=== PATIENT | female | born 1955 | race Hispanic/Latino ===

== ENCOUNTER 2018-03-08 05:57 | Day surgery (SDC) | payer MEDICARE ==
[2018-03-06 14:05] VITALS: BP 140/71
[2018-03-06 14:07] LABS: BASOPHILS % (AUTO) 0.5 % (0.0-5.0); EOSINOPHILS % (AUTO) 1.9 % (0.0-8.0); HEMATOCRIT 42.1 % (36-48); LYMPHOCYTES % (AUTO) 31.3 % (21.0-51.0); MEAN CORPUSCULAR HGB CONC 32.8 g/dL (32.0-36.0); MEAN CORPUSCULAR VOLUME 88.3 fL (79-99); MONOCYTES % (AUTO) 6.9 % (3.0-13.0); NEUTROPHILS % (AUTO) 59.4 % (40.0-77.0); NUCLEATED RED BLOOD CELLS 0.1 % (0.0-0.19); PLATELET COUNT (AUTO) 241 K/uL (130-400); RED BLOOD CELL COUNT(AUTO) 4.76 MIL/uL (4.00-5.50); RED CELL DISTRIBUTION WIDTH 13.4 % (11.0-15.5)
[2018-03-06 14:24] LABS: CREATININE 0.7 mg/dL (0.5-1.5); POTASSIUM 3.7 mmol/L (3.5-5.1)
--- NOTE | 2018-03-06 14:33 | NUR ---
NOTE NOTIFIED OFFICE, SPOKE TO CARISSA , SHE WILL NOTIFY DR CANNON OF PATIENT REFUSAL FOR BLOOD, SHE IS A [employer]EH[employer] WITNESS
[~2018-03-08] VITALS: Ht 160 cm; Wt 87.9 kg
[2018-03-08] VITALS (21 sets, daily range): BP systolic 102–128; BP diastolic 59–87
[~2018-03-08 05:57] MED LIST: AMLO5TAB9 PO; ASPI-555 PO; DULO30CA2 PO; LOSA100T58 PO; NAPR-1023 PO
[2018-03-08] MEDS ORDERED: SODIUM CHLORIDE 0.9% 1000ML 1,000 ML IV ONE (06:24)
[2018-03-08] MEDS ORDERED: CEFAZOLIN SODIUM 1 GM VIAL ONE (06:24)
[2018-03-08] MEDS: CEFAZOLIN SODIUM 1 GM VIAL IVP ONE ×2 (06:32→09:00)
[2018-03-08] MEDS ORDERED: BUPIVACAINE/PF 0.5% 30ML VIAL ONE (07:27)
[2018-03-08] MEDS ORDERED: MIDAZOLAM HCL 1 MG/ML 2ML VIAL ONE (07:49)
[2018-03-08] MEDS ORDERED: ONDANSETRON HCL 4 MG/2 ML VIAL ONE (07:49)
[2018-03-08] MEDS ORDERED: ROCURONIUM 10MG/1ML SYR 10 MG/ML ML ONE (07:49)
[2018-03-08] MEDS ORDERED: PROPOFOL 10 MG/ML 20ML VIAL IV ONE (07:49)
[2018-03-08] MEDS ORDERED: LIDOCAINE PF 2% 5ML ABBOJECT ONE (07:49)
[2018-03-08] MEDS ORDERED: FENTANYL CITRATE PF 50 MCG/1 ML 2ML VIAL ONE (07:50)
[2018-03-08] MEDS ORDERED: PHENYLEPHRINE HCL 10 MG/ML 1ML VIAL IV ONE (09:13)
[2018-03-08] MEDS ORDERED: GLYCOPYRROLATE 1 MG/5 ML SYRINGE ONE (09:33)
[2018-03-08] MEDS ORDERED: NEOSTIGMINE 5MG/5ML SYR IV ONE (09:33)
[2018-03-08] MEDS ORDERED: MEPERIDINE-PF 25 MG/ML SYG ONE ×2 (10:00→10:07)
--- NOTE | 2018-03-08 11:00 | NUR ---
ASSESSMENT RECEIVED PT AWAKE ALERT ,ON ASSESSING ,X 4BANDAIDS INTACT ,NOTICED BELOW UMBILICUS BRUISE WITH SKIN TEAR ,BUT DRY.,JUST ABOVE PUBIS IN BETWEEN THE FOLDS WITH APPROXIMATE 1/2 INCH LACERATION ,NO DRAINAGE ,PT STATES ALREADY THERE, CLIVE BALES AWARE ,SPOKE TO IMPLEMENTATION TECHNICIAN ,ALREADY THERE PER CLIVE BALES Addendum: 03/08/18 at 1341 by SHEILA SANCHES LVN LVN Amended: Links added.
--- NOTE | 2018-03-08 12:04 | NUR ---
BS PER PT REQUESTING BSFS ,SINCE HAS NOT EATEN SINCE YESTERDAY ,157,DRINKS APPLE JUICE
--- NOTE | 2018-03-08 12:20 | NUR ---
DISCHARGED VIA W/C ,REMINDED PT TO SEE PRIMARY IN REGARDS TO PUBIS LACERATION ,STATES WILL DO,,BUT ALREADY HAD DUE TO HER SWEATS FROM THERE, TO CAR VIA W/C ACCOMPANIED BY DAUGHTER ,ALSO INSTRUCTED TO DEEP BREATH AND COUGH ,USE PILLOW FOR SUPPORT ,VERBALIZES UNDERSTANDING,NO COMPLAINTS
== END 2018-03-08 12:20 | disposition home or self-care (01) ==
LOC: DAH 05:57
PROVIDERS: ATTEND Surgery
DX: K80.12 Calculus of gallbladder with acute and chronic cholecystitis without obstruction (principal); I10 Essential (primary) hypertension; E11.9 Type 2 diabetes mellitus without complications; K85.90 Acute pancreatitis without necrosis or infection, unspecified; Z98.890 Other specified postprocedural states; Z79.899 Other long term (current) drug therapy; Z79.84 Long term (current) use of oral hypoglycemic drugs; Z83.3 Family history of diabetes mellitus; Z82.49 Family history of ischemic heart disease and other diseases of the circulatory system; K21.9 Gastro-esophageal reflux disease without esophagitis
CPT/HCPCS: 36415; 47562; 80048; 82948 ×3; 85025; 88304; A4218; A4450; A4649 ×2; A4930; C1769 ×3; J0690; J2001; J2175 ×2; J2250; J2370; J2405; J2704; J2710; J3010; J3490 ×2; J7030 ×2